=== PATIENT | male | born 1965 | race Caucasian/White ===

== ENCOUNTER → 2023-07-25 06:37 | Outpatient (REF) | payer BC, SELFPAY | LOC: MRI 3T 06:37 | PROVIDERS: ATTENDING PHYSICIAN Internal Medicine | DX: M71.22 Synovial cyst of popliteal space [Baker], left knee (principal) | CPT/HCPCS: 73721 ==

== ENCOUNTER → 2023-10-16 06:48 | Outpatient (REF) | payer BC, SELFPAY ==
[2023-10-16 07:23] LABS: % Basophils 0.8 % (0-2); % Eosinophils 2.3 % (0-6); % Immature Granulocytes 0.2 % (0-0.5); % Lymphocytes 44.8 % (20.5-51.1); % Monocytes 9.8 % (1.7-9.3); % Neutrophils 42.1 % (42.2-75.2); Absolute Eosinophils 0.1 10^3/uL (0-0.7); Absolute Lymphocytes 2.4 10^3/uL (1.2-3.4); Absolute Monocytes 0.5 10^3/uL (0.1-0.6); Absolute Neutrophils 2.3 10^3/uL (1.4-6.5); Hematocrit 41.8 % (39.0-52.0); Hemoglobin 14.4 g/dL (13.0-18.0); Mean Corp Hgb Conc. 34.4 g/dL (33.0-37.0); Mean Corpuscular Volume 90.1 fL (80.0-94.0); Mean Platelet Volume 9.7 fL (7.4-10.4); Nucleated Red Blood Cells % 0 % (-); Platelet Count 251 10^3/uL (130-400); Red Blood Cell Count 4.64 10^6/uL (4.70-6.10); Red Cell Dist. Width 13.2 % (11.5-14.5); Urine Albumin Negative (Neg - Trace); Urine Bilirubin Negative (Negative); Urine Character Clear (Clear); Urine Color Yellow; Urine Glucose Negative (Negative); Urine Ketone Negative (Negative); Urine Leukocyte Negative (Negative); Urine Nitrite Negative (Negative); Urine Occult Blood Negative (Negative); Urine Urobilinogen Negative (Neg - 1+); White Blood Cell Count 5.3 10^3/uL (4.8-10.8)
[2023-10-16 08:04] LABS: ALT (SGPT) 27 U/L (0-50); AST (SGOT) 34 U/L (17-59); Albumin 4.3 g/dl (3.5-5.0); Alkaline Phosphatase 90 U/L (38-126); Blood Urea Nitrogen 25 mg/dl (9-20); Calcium 9.1 mg/dl (8.4-10.2); Carbon Dioxide 25 mmol/L (22-30); Chloride 105 mmol/L (98-107); Glucose 89 mg/dl (70-99); HDL Cholesterol 89 mg/dl; LDL Cholesterol, Calculated 133 mg/dl; Sodium 138 mmol/L (135-145); Total Bilirubin 0.6 mg/dl (0.2-1.3); Total Cholesterol 238 mg/dl (50-199); Total Protein 7.2 g/dl (6.3-8.2); Triglyceride 81 mg/dl (10-149); Very Low Density Lipoprotein 16 mg/dl (0-30); eGFR > 60.00
[2023-10-16 08:15] LABS: Potassium 4.2 mmol/L (3.5-5.1)
[2023-10-16 08:19] LABS: Vitamin D, 25-OH*** 40.3 ng/mL (30-80)
[2023-10-16 08:33] LABS: TSH Reflex To Free T4 2.57 uIU/ml (0.47-4.68)
== END ==
LOC: REG 06:48
PROVIDERS: ATTENDING PHYSICIAN Nurse Practitioner Family
DX: Z01.89 Encounter for other specified special examinations (principal); Z12.5 Encounter for screening for malignant neoplasm of prostate; E55.9 Vitamin D deficiency, unspecified
CPT/HCPCS: 36415; 80053; 80061; 81003; 82306; 84443; 85025; G0103

== ENCOUNTER 2024-01-21 08:27 | Emergency (ER) | payer BC, SELFPAY ==
[2024-01-21 08:38] VITALS: BP 147/102
--- NOTE | 2024-01-21 09:09 | ED.GENMED ---
History of Present Illness
General
Chief Complaint: Back Pain
Source: patient
Time Seen by Provider: 01/21/24 08:58
History of Present Illness
History of Present Illness:
58-year-old male presents emergency room complaining of low back pain radiating down his left thigh. No relieving factors. It is worse when he moves his legs. Denies any groin numbness or incontinence.
Past History
Past History
ED Past Medical History: None and Other (kidney stone)
ED Past Surgical History: None
Social History
Tobacco: Non-smoker
Alcohol: Occasional
Drug: None
Personal:
Living: with family
Phy Exam
Physical Exam
Physical Exam:
Physical Exam
General: no apparent distress, not acutely ill
Neck: supple. no meningeal signs. normal posterior pharynx
Heart: s1/s2 regular rate and rhythm, no murmur. equal radial
pulses.
HEENT: Pupils equal round reactive to light, EOMI
Lungs: no acute respiratory distress. clear bilaterally
Abdomen: normal bowel sounds. not tender. no CVAT
Neuro: alert and oriented. no focal neurological deficits cranial nerves II through XII intact
Skin: no rash
Psychiatric: well kept. interactive and cooperative
Extremities: no edema. no calf tenderness. negative homans. good distal pulses
Course
Orders/Labs/Results
Orders:
Orders
01/21/24 09:07
Cyclobenzaprine HCl [Flexeril] 10 mg PO NOW STA
Ketorolac [Toradol] 15 mg IM NOW STA
Prednisone [Deltasone] 50 mg PO NOW STA
Lumbar Spine Complete, 4 View [CR Lumbar Spine Comp Min 4 Vw*] Urgent
Comment:
Reason For Exam: left side low back pain radiating left leg
Vital Signs
Initial and Last Documented VS:
Initial Vital Signs
Temp Pulse Resp BP Pulse Ox
98.7 F 90 18 147/102 99
01/21/24 08:38 01/21/24 08:38 01/21/24 08:38 01/21/24 08:38 01/21/24 08:38
Last Documented Vital Signs
Temp Pulse Resp BP Pulse Ox
98.7 F 90 18 126/83 97
01/21/24 08:38 01/21/24 08:38 01/21/24 08:38 01/21/24 10:02 01/21/24 10:03
MDM/Problems Addressed
Differential Diagnosis Includes:
Lumbar colopathy, cauda equina
MDM/Problems Addressed:
58-year-old male with lumbar radiculopathy. No signs of cauda equina. Improved after Toradol and Flexeril. Will treat with prednisone and Flexeril, and follow-up with pain management.
*Radiology
Radiology exam reviewed: radiology read reviewed (Lumbar x-ray no acute finding)
*Pulse Oximetry
Patient hypoxic: no
*Critical Care Note
Total Time (30-74mins, 75-104mins- exclusive of procedures): Not Applicable
Patient Management
Social determinants of health affecting care: Living situation
Escalation/DeEscalation of care consider admission/obs:
Admit not indicated
ED Attending Note
-
Portions of this chart may have been created with voice recognition software.� Occasional wrong word or��sound alike� substitutions may have occurred due to the inherent limitations of voice recognition software.
Discharge Plan
Departure
Patient Disposition: Home (Routine Discharge)
Date of Disposition: 01/21/24
Time of Disposition: 11:19
Patient with high blood pressure during this ER visit?: Yes
Condition: Good
Discharge Problem:
Acute left lumbar radiculopathy
Instructions: Radiculopathy (DC), BLOOD PRESSURE
Prescriptions:
New
prednisone 50 mg tablet
50 mg PO DAILY Qty: 5 0RF
cyclobenzaprine 10 mg tablet
10 mg PO TID PRN (Reason: pain) Qty: 14 0RF
No Action
bismuth subsalicylate [[place] Bismuth] 30 ML suspension
30 ml PO PRN PRN (Reason: diarrhea)
Patient Comments:
1st time pt took pepto
MULTIVITAMIN Tab
1 tab PO DAILY
Patient Comments:
children's MVI per pt
cetirizine 10 MG tablet
10 mg PO DAILY
omeprazole magnesium [Prilosec OTC] 20 MG tablet,delayed release (DR/EC)
20 mg PO DAILY
Referrals:
Terrance Danielson MD [Active] - Call in 1-3 days for appt
Hair Ramirez DO [Family Provider] -
Stand Alone Forms: Return to Work
Interventions
Interventions:
*Risk Screen - Suicide Last Done: 01/21/24 08:36
*General Assessment Last Done: 01/21/24 08:36
*Neglect/Abuse Screening Last Done: 01/21/24 08:36
ED- Fall Risk Assessment Last Done: 01/21/24 09:15
*ED COVID-19 Vaccine History Last Done: 01/21/24 09:15
ED-Musculoskeletal Assessment Last Done: 01/21/24 09:15
Discharge Date and Time
Print Language: [place]
[2024-01-21 09:15] VITALS: BMI 28.4
[2024-01-21 09:16] VITALS: BP 137/89
[2024-01-21] MEDS: FLEXERIL 10 MG PO (09:20)
[2024-01-21] MEDS: TORADOL 15 MG IM (09:20)
[2024-01-21] MEDS: DELTASONE 50 MG PO (09:20)
[2024-01-21 10:02] VITALS: BP 126/83
[2024-01-21 11:00] VITALS: BP 118/70
[2024-01-21 12:00] VITALS: BP 120/79
== END 2024-01-21 12:23 | disposition home or self-care (01) ==
LOC: EMR 08:27
PROVIDERS: EMERGENCY PHYSICIAN Emergency Medicine; FAMILY PHYSICIAN Internal Medicine
DX: M54.16 Radiculopathy, lumbar region (principal); M79.605 Pain in left leg; R03.0 Elevated blood-pressure reading, without diagnosis of hypertension; Z87.442 Personal history of urinary calculi
CPT/HCPCS: 99284; 96372; 72110

== ENCOUNTER → 2024-11-10 13:06 | Outpatient (REF) | payer BC, SELFPAY | LOC: CLAB 13:06 | PROVIDERS: ATTENDING PHYSICIAN Nurse Practitioner Family | DX: R35.0 Frequency of micturition (principal) | CPT/HCPCS: 87086 ==

== ENCOUNTER → 2024-11-13 07:34 | Outpatient (REF) | payer BC, SELFPAY ==
[2024-11-13 08:46] LABS: Urine Character Clear (Clear)
== END ==
LOC: REG 07:34
PROVIDERS: ATTENDING PHYSICIAN Nurse Practitioner Family
DX: R35.0 Frequency of micturition (principal)
CPT/HCPCS: 81003; 87086